=== PATIENT | male | born 1955 | race Caucasian/White ===

== ENCOUNTER → 2016-06-19 | Day surgery (SDC) | payer MEDICARE ==
[~2016-06-19] VITALS: Ht 182.9 cm; Wt 68.9 kg
[~2016-06-19] MED LIST: NORCO 7.5-3251 EACH PO
== END | disposition home or self-care (01) ==
LOC: OR 08:01
PROVIDERS: Internal Medicine Gastroenterology
PROC: 0DBP8ZZ Excision of Rectum, Via Natural or Artificial Opening Endoscopic (ICD-10-PCS; 2016-06-19)
PROC: 0DBN8ZZ Excision of Sigmoid Colon, Via Natural or Artificial Opening Endoscopic (ICD-10-PCS; principal; 2016-06-19 12:45)
DX: D12.8 Benign neoplasm of rectum (principal); K63.5 Polyp of colon; K64.0 First degree hemorrhoids; K57.30 Diverticulosis of large intestine without perforation or abscess without bleeding; M19.90 Unspecified osteoarthritis, unspecified site; G89.29 Other chronic pain; K59.03 Drug induced constipation; Z88.0 Allergy status to penicillin; Z79.891 Long term (current) use of opiate analgesic
CPT/HCPCS: J2001; J7030

== ENCOUNTER 2020-11-19 16:06 | Emergency (ER) | payer MEDICARE ==
[2020-11-19 17:35] LABS: HEMOGLOBIN 16.4 gm/dl (14.0-17.5); RED BLOOD COUNT 4.95 M/UL (4.20-5.50); WHITE BLOOD COUNT 16.7 K/UL (4.5-11.0)
[2020-11-19 18:00] LABS: BUN/CREATININE RATIO 10 (0-10)
== END 2020-11-19 21:44 | disposition short-term general hospital (02) ==
LOC: ER1 16:06
PROVIDERS: Student in an Organized Health Care Education/Training Program
DX: G45.9 Transient cerebral ischemic attack, unspecified (principal); F17.210 Nicotine dependence, cigarettes, uncomplicated; Z20.822 Contact with and (suspected) exposure to COVID-19; Z88.0 Allergy status to penicillin; R29.700 NIHSS score 0
CPT/HCPCS: 70450; 70496; 70498; 71045; 80053; 82550; 82553; 82962; 83874; 84484; 85025; 93005; 99285; Q9967; U0002

== ENCOUNTER → 2021-05-30 | Outpatient (CLI) | payer MEDICARE | LOC: LAB 09:28 | DX: C20 Malignant neoplasm of rectum (principal) | CPT/HCPCS: 36415; 86140 ==